=== PATIENT | female | born 2000 | race Asian ===

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

== ENCOUNTER 2021-05-03 16:21 | Emergency (ER) | payer MEDICAID ==
[~2021-05-03] VITALS: Ht 157.5 cm; Wt 61.2 kg
[~2021-05-03 16:21] MED LIST changes: +DIPH25CA83 PO
[2021-05-03 16:36] VITALS: BP_SYST 115
--- NOTE | 2021-05-03 16:36 | NUR ---
pt. came in with mom and brother all to be screened for covid, pt. states back on 04/28 she had sore throat, congestion, runny nose and productive cough with clear to yellow flem, all symptoms improved except now has a non productive cough, came in because today because mom and brother are sick so thinks she might have covid
--- NOTE | 2021-05-03 16:36 | NUR ---
Patient to ER tent for evaluation.
--- NOTE | 2021-05-03 17:13 | NUR ---
covid swab performed outside tent and sent to lab.
--- NOTE | 2021-05-03 18:35 | NUR ---
ER in tent examining patient.
[2021-05-03 19:20] VITALS: BP_SYST 145
--- NOTE | 2021-05-03 19:20 | NUR ---
Patient given written and verbal discharge instructions and verbalizes understanding. ER Dr. Jolley discussed with patient the results and treatment provided. Patient in stable condition. ID arm band removed. Patient educated on pain management and to follow up with PMD. Pain Scale 0. Opportunity for questions provided and answered.
== END 2021-05-03 19:20 | disposition home or self-care (01) ==
LOC: SED 16:21
DX: J40 Bronchitis, not specified as acute or chronic (principal); Z79.899 Other long term (current) drug therapy; Z20.822 Contact with and (suspected) exposure to COVID-19
CPT/HCPCS: 36415; 99283

== ENCOUNTER 2021-10-23 02:34 | Emergency (ER) | payer MEDICAID ==
[~2021-10-23] VITALS: Ht 154.9 cm; Wt 63.5 kg
[2021-10-23 02:50] VITALS: BP_SYST 144
[2021-10-23] MEDS ORDERED: ACETAMINOPHEN 500 MG TABLET PO ONE (03:30)
[2021-10-23 04:19] VITALS: BP_SYST 123
== END 2021-10-23 04:19 | disposition home or self-care (01) ==
LOC: SED 02:34
DX: R07.89 Other chest pain (principal); D64.9 Anemia, unspecified; Z79.899 Other long term (current) drug therapy
CPT/HCPCS: 71045; 93005; 99283

== ENCOUNTER 2022-04-28 21:36 | Emergency (ER) | payer MEDICAID ==
[~2022-04-28] VITALS: Ht 157.5 cm; Wt 68.0 kg
[2022-04-28 21:57] VITALS: BP_SYST 120
--- NOTE | 2022-04-28 21:59 | NUR ---
Patient triaged and placed in waiting room. VSS and patient appears in no acute distress at this time. Accompanied by self, awaiting available bed, and MD notified of need for MSE.
--- NOTE | 2022-04-28 22:00 | NUR ---
PT FROM HOME WITH C/O OF BROKEN NAIL TO THE LEFT HAND, MIDDLE FINGER. PT STATES THAT THE NAIL FROM SKIN, NO BLEEDING NOTED. VSS. REQUESTED FOR MSE.
--- NOTE | 2022-04-28 23:20 | NUR ---
WITH PATIENT FOR MSE.
[2022-04-28] MEDS ORDERED: DIPHTH,PERTUSS(ACELL),TET VAC 0.5 ML VIAL (Tdap) I.M. ONE (23:30)
--- NOTE | 2022-04-28 23:50 | NUR ---
Patient given written and verbal discharge instructions and verbalizes understanding. ER DR. AYALA discussed with patient the results and treatment provided. Patient in stable condition. ID arm band removed. Patient educated on pain management and to follow up with PMD. Pain Scale 0. Opportunity for questions provided and answered. Medication side effect fact sheet provided.
[2022-04-28 23:55] VITALS: BP_SYST 120
== END 2022-04-28 23:55 | disposition home or self-care (01) ==
LOC: SED 21:36
DX: S61.310A Laceration without foreign body of right index finger with damage to nail, initial encounter (principal); Z79.899 Other long term (current) drug therapy; W23.1XXA Caught, crushed, jammed, or pinched between stationary objects, initial encounter; Y93.89 Activity, other specified; Y92.89 Other specified places as the place of occurrence of the external cause; Y99.8 Other external cause status
CPT/HCPCS: 90715; 99283